=== PATIENT | male | born 1990 | race Caucasian/White ===

== ENCOUNTER 2023-03-12 17:30 | Emergency (ER) | payer OTHER ==
[2023-03-12] MEDS: Take Home: Acetaminophen/Codeine 300 MG/30 MG, 5 Tab Pack PO ONE (19:45)
== END 2023-03-12 19:50 | disposition home or self-care (01) ==
LOC: VM.ED 17:30
DX: S61.210A Laceration without foreign body of right index finger without damage to nail, initial encounter (principal); W26.8XXA Contact with other sharp object(s), not elsewhere classified, initial encounter; Y99.0 Civilian activity done for income or pay
CPT/HCPCS: 12002; 73140-F6; 99283; A9270-GY